=== PATIENT | male | born 1970 | race Caucasian/White ===

== ENCOUNTER 2020-11-28 12:45 | Outpatient (CLI) | payer OTHER, SELFPAY ==
--- NOTE | ~2020-11-28 | MR_ITS ---
EXAMINATION: MR shoulder RT wo con DATE: 11/28/2020 13:32 INDICATION: Right shoulder pain TECHNIQUE: Magnetic resonance imaging (MRI) of the right shoulder was performed without intravenous c ontrast. Sequences included axial PD-weighted FS FSE, coronal oblique PD-weighted FS FSE, coronal obl ique T2-weighted FS FSE, sagittal PD-weighted FS FSE, and sagittal T1-weighted SE. COMPARISON: None. FINDINGS: Coracoacromial arch: The acromion undersurface is curved in morphology (type II). The coracoacromial ligament is normal. M ild to moderate acromioclavicular osteoarthritis with tiny degenerative subarticular cysts along the lateral head of the clavicle. Rotator cuff: Moderate tendinopathy with shallow bursal sided fraying at the conjoined portion of the supraspinatus and infraspinatus tendons. Mild tendinopathy without discrete tear of the more anterior supraspinatu s and posterior infraspinatus tendons. The teres minor and subscapularis tendons are normal. Normal r otator cuff muscle bulk and signal. Biceps tendon, glenoid labrum and glenohumeral cartilage: Long head of the biceps tendon is normal. Degeneration of the diminutive posterior superior glenoid l abrum. Glenohumeral cartilage is normal. Fluid: Physiologic amount of fluid in the glenohumeral joint and biceps tendon sheath. No loose osteochondra l bodies. Small amount of fluid in the subacromial/subdeltoid bursa consistent with mild bursitis. Bones: Normal marrow signal with no edema, fracture or abnormal marrow replacing process. IMPRESSION: 1. Moderate tendinopathy with shallow bursal sided fraying at the conjoined portion of the supraspina tus and infraspinatus tendons. 2. Focal degeneration of the diminutive posterior superior glenoid labrum. 3. Mild to moderate acromioclavicular osteoarthritis with mild underlying subacromial/subdeltoid burs itis. Reviewed, dictated and finalized at location A. IMPRESSION: 1. Moderate tendinopathy with shallow bursal sided fraying at the conjoined por tion of the supraspinatus and infraspinatus tendons. 2. Focal degeneration of the diminutive posterior superior glenoid labrum. 3. Mild to moderate acromioclavicular osteoarthritis with mild underlying subac romial/subdeltoid bursitis.
== END 2020-11-28 12:46 | disposition home or self-care (01) ==
PROVIDERS: PCP Internal Medicine; Visit Provider Physician Assistant
DX: G89.29 Other chronic pain (principal); M25.511 Pain in right shoulder; M75.81 Other shoulder lesions, right shoulder; M19.011 Primary osteoarthritis, right shoulder; M75.51 Bursitis of right shoulder
CPT/HCPCS: 73221

== ENCOUNTER 2023-05-21 09:57 | Outpatient (CLI) | payer OTHER, SELFPAY ==
--- NOTE | 2023-05-21 10:18 | ECG_ITS ---
Measurements Intervals [place] Rate: 74 P: 26 DC: 149 QRS: 75 QRSD: 89 T: 62 QT: 366 QTc: 407 Interpretive Statements SINUS RHYTHM NO PREVIOUS ECG AVAILABLE FOR COMPARISON Electronically Signed On 05-21-2023 15:02:33 CDT by Rui Salguero M.D.
== END 2023-05-21 09:58 | disposition home or self-care (01) ==
LOC: ANHCARD 09:58
PROVIDERS: PCP Physician Assistant; Visit Provider Physician Assistant
DX: R07.9 Chest pain, unspecified (principal)
CPT/HCPCS: 93005